=== PATIENT | male | born 1960 | race Caucasian/White ===

== ENCOUNTER 2018-11-25 21:56 | Inpatient (IN) | payer MEDICAID ==
[~2018-11-25] VITALS: Ht 177.8 cm; Wt 112.3 kg
[~2018-11-25 21:56] MED LIST: ASPI-611 PO; BENZONATATE 100 MG; BUDE10.2 INH; CARI350T PO; CHOL400T57 PO; CLOP75TA15 PO; DIGO250T77 PO; DOCU-329 PO; DOXYCYCLINE MONOHYDRATE 100 MG; FENO160T10 PO; FURO40TA4 PO; INSU100C10 SQ; INSU100V2 SQ; IPRA3AMP31 IH; LINA5TAB4 PO; LOSA50TA64 PO; METO25TA6 PO; METO50TA16 PO; NITR0.4T51 SL; NORCO10T PO; OMEP20TA5 PO; PREDNISONE 20 MG; SPIIN INH; SPIR25TA5 PO; TEMA30CA5 PO; VENL75TA4 PO; VITAMIN E PO
[2018-11-25 22:20] LABS: BASOPHILS # (AUTO) 0.1 X10'3 (0-0.2); EOSINOPHILS # (AUTO) 0.4 X10'3 (0-0.9); EOSINOPHILS % (AUTO) 4.7 % (0-6); HEMOGLOBIN 13.6 g/dl (14.0-17.9); LYMPHOCYTES # (AUTO) 1.9 X10'3 (1.1-4.8); LYMPHOCYTES % (AUTO) 22.7 % (21-51); MEAN CORPUSCULAR HEMOGLOBIN 29.9 PG (27.0-31.0); MEAN CORPUSCULAR HGB CONC 33.3 g/dL (33.0-36.5); MEAN CORPUSCULAR VOLUME 89.7 FL (78-98); MEAN PLATELET VOLUME 9.4 FL (7.4-10.4); MONOCYTES # (AUTO) 0.8 X10'3 (0-0.9); NEUTROPHILS # (AUTO) 5.2 X10'3 (1.8-7.7); NEUTROPHILS % (AUTO) 62.6 % (42-75); PLATELET COUNT 206 X10'3 (140-440); RED BLOOD COUNT 4.56 X10'6 (4.70-6.10); RED CELL DISTRIBUTION WIDTH 13.8 % (11.5-14.5); WHITE BLOOD COUNT 8.4 X10'3 (4.5-11.0)
[2018-11-25 22:33] LABS: PARTIAL THROMBOPLASTIN TIME 26 SECONDS (22-32)
[2018-11-25 22:39] LABS: ALANINE AMINOTRANSFERASE 21 U/L (12-78); ALBUMIN 3.7 G/DL (3.4-5.0); ALBUMIN/GLOBULIN RATIO 1.2 (1.1-1.5); ALKALINE PHOSPHATASE 71 IU/L (46-116); ANION GAP 8 (8-16); ASPARTATE AMINO TRANSFERASE 11 U/L (10-37); BILIRUBIN,TOTAL 0.5 MG/DL (0.1-1.0); BLOOD UREA NITROGEN 17 MG/DL (7-18); BUN/CREATININE RATIO 12.7 (5.4-32.0); CALCIUM 8.6 MG/DL (8.5-10.1); CHLORIDE 101 MMOL/L (99-107); CREATININE 1.34 MG/DL (0.60-1.10); GLUCOSE 274 MG/DL (70-104); POTASSIUM 3.7 MMOL/L (3.5-5.1); SODIUM 137 MMOL/L (135-145); TOTAL CARBON DIOXIDE 27.7 MMOL/L (24-32); TOTAL PROTEIN 6.8 G/DL (6.4-8.2); eGFR 55 ML/MIN
[2018-11-25 23:23] LABS: ETHANOL < 0.010 GM/DL (0.0-0.010)
[2018-11-25] MEDS ORDERED: carVEDilol 12.5mg tablet PO SCH (23:30)
[2018-11-25] MEDS ORDERED: enoxaparin 100mg/ml syringe SUBCUT ONE (23:35)
[2018-11-25 23:43] LABS: MAGNESIUM 1.8 MG/DL (1.5-2.4)
[2018-11-26] VITALS (14 sets, daily range): BP systolic 99–147; BP diastolic 55–97
--- NOTE | 2018-11-26 00:30 | NUR ---
Patient in room PCU 3013. I have received report from MAURA Mccartney in the ER and had the opportunity to ask questions and assume patient care.
[2018-11-26] MEDS ORDERED: normal saline 1000ml 1,000 ML IV SCH (00:40)
[2018-11-26] MEDS ORDERED: magnesium hydroxide 30ml (MOM) UD suspension PO PRN (00:40)
[2018-11-26] MEDS ORDERED: mag hydrox/Alum hydrox/simeth 30ml oral suspension PO PRN (00:40)
[2018-11-26] MEDS ORDERED: ondansetron/PF 4mg/2ml inj IV PRN (00:40)
[2018-11-26] MEDS ORDERED: acetaminophen 325mg tablet PO PRN (00:40)
[2018-11-26] MEDS ORDERED: dextrose ORAL solution 15 GM/59 ML bottle PO PRN ×2 (00:45)
[2018-11-26] MEDS ORDERED: MESSAGE TO PHARMACY PO ONE (00:45)
[2018-11-26] MEDS ORDERED: dextrose 50%-water 50ml dispensing syringe IV PRN ×2 (00:45)
[2018-11-26] MEDS ORDERED: glucagon, human recombinant 1mg kit SUBCUT PRN (00:45)
[2018-11-26] MEDS ORDERED: FERR-29 PO (00:48)
[2018-11-26] MEDS ORDERED: DILT180C53 PO (00:48)
[2018-11-26] MEDS ORDERED: HYDR-3973 PO (00:48)
[2018-11-26] MEDS ORDERED: POTA-82 PO (00:48)
[2018-11-26] MEDS ORDERED: METH750T3 PO (00:48)
[2018-11-26] MEDS ORDERED: ATOR40TA72 PO (00:48)
[2018-11-26] MEDS ORDERED: FLO0.4C PO (00:48)
[2018-11-26] MEDS ORDERED: PANT40TA4 PO (00:48)
[2018-11-26] MEDS ORDERED: INSU100I31 SQ (00:48)
[2018-11-26 01:13] LABS: HEMOGLOBIN A1C 10.2 % (4.5-6.2)
--- NOTE | 2018-11-26 01:15 | NUR ---
Patient arrived from ER while I was at lunch, he is laying in bed resting comfortably at this time. He is A&O x3, SCHNEIDER and is appropriate, I will continue to monitor.
[2018-11-26] MEDS ORDERED: magnesium 2GM in 50ml NS 50 ML IV ONE (01:30)
[2018-11-26 01:48] LABS: URINE AMPHETAMINE SCREEN NEGATIVE (Neg); URINE BARBITUATE SCREEN NEGATIVE (Neg); URINE BENZODIAZEPINES SCREEN NEGATIVE (Neg); URINE CANNABINOID SCREEN NEGATIVE (Neg); URINE COCAINE SCREEN NEGATIVE (Neg); URINE METHADONE SCREEN NEGATIVE (Neg); URINE OPIATE SCREEN NEGATIVE (Neg); URINE PHENCYCLIDINE SCREEN NEGATIVE (Neg)
[2018-11-26] MEDS ORDERED: HYDROcodone/acetaminophen 10/325mg tab PO PRN (02:10)
--- NOTE | 2018-11-26 02:32 | NUR ---
Patient's Mag is 1.8, he has orders from ER to give IV mag replacement. Per Dr. Nesbitt, discontinue this order.
[2018-11-26] MEDS: morphine 2 MG/ML inj. syringe IV PRN ×2 (02:38→16:25)
[2018-11-26] MEDS ORDERED: cyclobenzaprine 10mg tablet PO PRN (02:45)
[2018-11-26] MEDS ORDERED: ipratropium 0.5 MG/2.5ML nebule IH SCH (03:00)
[2018-11-26] MEDS ORDERED: albuterol 2.5 MG/3 ML nebule NEB SCH (03:00)
[2018-11-26] MEDS: ipratropium/albuterol 3ml nebule IH SCH ×4 (03:44→20:18)
--- NOTE | 2018-11-26 06:18 | NUR ---
Problems reprioritized. Patient report given, questions answered & plan of care reviewed with MAURA Teague.
--- NOTE | 2018-11-26 06:36 | NUR ---
Patient in room PCU 3013. I have received report from Cristina LORENZO and had the opportunity to ask questions and assume patient care.
[2018-11-26] MEDS: budesonide 0.5mg/2ml UD nebule IH SCH ×2 (07:24→20:18)
[2018-11-26] MEDS ORDERED: tamsulosin 0.4mg capsule PO SCH (08:00)
[2018-11-26] MEDS ORDERED: digoxin 250mcg (0.25mg) tablet PO SCH (08:00)
[2018-11-26] MEDS ORDERED: pantoprazole 40mg Tablet.DR PO SCH (08:00)
[2018-11-26] MEDS ORDERED: diltiazem CD 180mg cap (once-daily) PO SCH (08:00)
[2018-11-26] MEDS ORDERED: atorvastatin 20mg tablet PO SCH (08:00)
[2018-11-26] MEDS ORDERED: ferrous sulfate 325mg tablet PO SCH (08:00)
[2018-11-26] MEDS: heparin, porcine 5000 units/ml vial SQ SCH ×2 (08:00→19:58)
[2018-11-26] MEDS ORDERED: potassium Cl 20 mEq SR tablet PO SCH (08:00)
[2018-11-26] MEDS ORDERED: aspirin 81mg tab.chew PO SCH (08:30)
[2018-11-26] MEDS ORDERED: fenofibrate 145mg tablet PO SCH (08:30)
[2018-11-26] MEDS ORDERED: magnesium 4gm in 100ml NS 100 ML IV PRN (09:20)
[2018-11-26] MEDS ORDERED: potassium CL 10mEq/100ml bag 100 ML IV PRN (09:20)
[2018-11-26] MEDS ORDERED: magnesium Cl slow-release 64mg tablet PO PRN (09:20)
[2018-11-26] MEDS ORDERED: potassium Cl 20 mEq SR tablet PO PRN ×2 (09:20)
[2018-11-26] MEDS ORDERED: aminophylline 250mg/10ml inj. IV PRN (09:35)
[2018-11-26] MEDS ORDERED: metoprolol tartrate 1mg/ml inj IV PRN (09:35)
[2018-11-26] MEDS ORDERED: regadenoson 0.4mg/5ml syringe IV ONE (09:35)
[2018-11-26] MEDS ORDERED: nitroGLYCERIN 0.4mg SUBLingual tab SL PRN (09:35)
[2018-11-26] MEDS: furosemide 40mg tablet PO SCH ×2 (10:13→19:56)
[2018-11-26] MEDS: metoprolol tartrate 50mg tablet PO SCH ×2 (10:14→19:57)
[2018-11-26] MEDS: docusate sod 250mg capsule PO SCH ×2 (10:18→19:58)
--- NOTE | 2018-11-26 14:34 | NUR ---
Patient arrived back from [facility] for stress test, will page MD for diet order.
--- NOTE | 2018-11-26 14:36 | NUR ---
Paged hospitalist, "Jenny 54- room 3013 A Jemma Chairez urgent but nonemergent call back request for diet order post Princess, needs diet order. Thank you. Waiting on diet orders.
--- NOTE | 2018-11-26 15:43 | NUR ---
DM consult: Pt with A1c 10.2 seen at bedside. Pt reports seeing PCP for DM management q months, states he takes his meds per rx, and checks BG levels two times a day. Pt states BG levels are all over the place and acknowledges that BG levels are not well controlled. Pt states he doesn't follow a DM diet and very passive about learning ways to better manage DM. Pt provided with written DM education with referral to outpatient DM class. Per documented hx patient's A1c was 9.3 in January 2017 and prior to that was well controlled in the sixes and sevens. Pt does not verbalize any change that could've contributed in his A1c increasing. RD encouraged pt to attend outpatient DM class and reach out to RD if he has any questions. Pt admit with CP. Pt currently NPO and reports being very hungry, noted that RN has paged MD for diet order. Pt requests double protein TID once diet is advanced, d/w dietary. Pt denies any food allergies or difficulty chewing/swallowing. Pt reports diarrhea with liquid stools today, discussed BRAT diet and informed pt to let RN know. Noted that pt receiving routine Colace. Will continue to follow. Recommendations: 1) Advance to heart healthy CHO controlled diet as medically indicated 2) Double protein TID once diet advancement 3) Routine bowel care 4) Wt per rx Addendum: 11/26/18 at [address] Amended: Links added.
--- NOTE | 2018-11-26 17:06 | NUR ---
Paged hospitatlist, "delma 54- room 3027 A stress test results in- please page whether we can order HH diet or not. Thank you"
--- NOTE | 2018-11-26 18:26 | NUR ---
Problems reprioritized. Patient report given, questions answered & plan of care reviewed with Cristina LORENZO.
[2018-11-26] MEDS: insulin Lispro (HumaLOG) vial - multi-dose SQ SCH ×2 (20:01→21:09)
[2018-11-26] MEDS ORDERED: insulin glargine (Lantus) pen - multi-dose SQ SCH (21:00)
[2018-11-26] MEDS ORDERED: venlafaxine XR 75mg capsule (Q24H) PO SCH (21:00)
--- NOTE | 2018-11-26 22:27 | NUR ---
Patient in room U 3013. I have received report from MAURA Alvarado and had the opportunity to ask questions and assume patient care. Patient sitting up in bed eating dinner. He is A&O x3, SCHNEIDER and is appropriate.
[2018-11-27 02:00] VITALS: BP 119/64
[2018-11-27] MEDS: ipratropium/albuterol 3ml nebule IH SCH ×2 (02:56→08:04)
--- NOTE | 2018-11-27 03:20 | NUR ---
Patient is up sitting on side of bed watching TV, he seem anxious and fidgety. I asked if he was in pain and he said yes, but doesn't want any pain medication, he just can't sleep here and wants to go home. He said he won't wait all day to go home either and will leave. I told him do what you have to do.
[2018-11-27 05:18] LABS: BASOPHILS # (AUTO) 0.1 X10'3 (0-0.2); BASOPHILS % (AUTO) 1.4 % (0-1); EOSINOPHILS # (AUTO) 0.4 X10'3 (0-0.9); EOSINOPHILS % (AUTO) 5.5 % (0-6); HEMATOCRIT 39.7 % (42.0-52.0); HEMOGLOBIN 13.3 g/dl (14.0-17.9); LYMPHOCYTES # (AUTO) 2.6 X10'3 (1.1-4.8); LYMPHOCYTES % (AUTO) 34.8 % (21-51); MEAN CORPUSCULAR HEMOGLOBIN 29.6 PG (27.0-31.0); MEAN CORPUSCULAR HGB CONC 33.6 g/dL (33.0-36.5); MEAN CORPUSCULAR VOLUME 88.1 FL (78-98); MEAN PLATELET VOLUME 10.1 FL (7.4-10.4); MONOCYTES # (AUTO) 0.8 X10'3 (0-0.9); NEUTROPHILS # (AUTO) 3.7 X10'3 (1.8-7.7); NEUTROPHILS % (AUTO) 48.3 % (42-75); PLATELET COUNT 191 X10'3 (140-440); RED CELL DISTRIBUTION WIDTH 13.6 % (11.5-14.5); WHITE BLOOD COUNT 7.6 X10'3 (4.5-11.0)
[2018-11-27 05:38] LABS: ALANINE AMINOTRANSFERASE 23 U/L (12-78); ALBUMIN 3.1 G/DL (3.4-5.0); ALKALINE PHOSPHATASE 65 IU/L (46-116); ANION GAP 10 (8-16); ASPARTATE AMINO TRANSFERASE 8 U/L (10-37); BILIRUBIN,TOTAL 0.3 MG/DL (0.1-1.0); BLOOD UREA NITROGEN 22 MG/DL (7-18); BUN/CREATININE RATIO 16.8 (5.4-32.0); CALCIUM 8.2 MG/DL (8.5-10.1); CHLORIDE 107 MMOL/L (99-107); CHOLESTEROL 155 MG/DL (0-200); CREATININE 1.31 MG/DL (0.60-1.10); GLUCOSE 171 MG/DL (70-104); HDL CHOLESTEROL 22 MG/DL (35-60); LDL CHOLESTEROL 94 MG/DL (50-100); MAGNESIUM 1.9 MG/DL (1.5-2.4); PHOSPHORUS 3.6 MG/DL (2.3-4.5); POTASSIUM 3.8 MMOL/L (3.5-5.1); SODIUM 141 MMOL/L (135-145); TOTAL CARBON DIOXIDE 24.4 MMOL/L (24-32); TOTAL PROTEIN 6.1 G/DL (6.4-8.2); TRIGLYCERIDES 306 MG/DL (20-135); eGFR 56 ML/MIN
[2018-11-27 06:00] VITALS: BP 156/92
--- NOTE | 2018-11-27 06:26 | NUR ---
Problems reprioritized. Patient report given, questions answered & plan of care reviewed with MAURA Alston.
--- NOTE | 2018-11-27 06:35 | NUR ---
Patient in room PCU 3013. I have received report from MAURA Painting and had the opportunity to ask questions and assume patient care.
--- NOTE | 2018-11-27 07:00 | NUR ---
Informed by MORTGAGE LOAN PROCESSING CLERK that patient is taking out his IV and going home. Patient is angry, belligerant, and using derogatory language toward the staff. He states that we are 'all rude and stupid". Told patient I would take his IV out or even help him with it and he refused, using the sheet to apply pressure to the bleeding. Asked him if he would sign an AMA form and he agreed, however when I went back to the room he was already gone. I met him in the barry and he refused to sign. notified.
--- NOTE | 2018-11-27 07:15 | NUR ---
Message to Dr. Obando - Mr. Easton RM [id number] Left AMA, refused to sign AMA form. Thanks, Alecia [facility] ext [phone]
[2018-11-27] MEDS: budesonide 0.5mg/2ml UD nebule IH SCH (08:00)
== END 2018-11-27 07:20 | disposition left against medical advice (07) | DRG 198 ==
LOC: ER 21:57 → PCU 3S 11-26 01:31 → CMPBEDREQ 11-26 01:53
PROVIDERS: ADMIT Internal Medicine; ATTEND Family Medicine
PROC: 4A02XM4 Measurement of Cardiac Total Activity, External Approach (ICD-10-PCS; principal; 2018-11-26)
PROC: 3E033HZ Introduction of Radioactive Substance into Peripheral Vein, Percutaneous Approach (ICD-10-PCS; 2018-11-26)
DX: I25.110 Atherosclerotic heart disease of native coronary artery with unstable angina pectoris (principal); E11.42 Type 2 diabetes mellitus with diabetic polyneuropathy; I11.0 Hypertensive heart disease with heart failure; I50.9 Heart failure, unspecified; E78.00 Pure hypercholesterolemia, unspecified; G47.30 Sleep apnea, unspecified; E78.5 Hyperlipidemia, unspecified; I48.91 Unspecified atrial fibrillation; F32.9 Major depressive disorder, single episode, unspecified; F41.9 Anxiety disorder, unspecified; G89.29 Other chronic pain; Z53.21 Procedure and treatment not carried out due to patient leaving prior to being seen by health care provider; N28.9 Disorder of kidney and ureter, unspecified; M54.9 Dorsalgia, unspecified; B19.20 Unspecified viral hepatitis C without hepatic coma; J43.9 Emphysema, unspecified; Z82.3 Family history of stroke; Z82.49 Family history of ischemic heart disease and other diseases of the circulatory system; Z90.49 Acquired absence of other specified parts of digestive tract; Z80.9 Family history of malignant neoplasm, unspecified; Z79.899 Other long term (current) drug therapy; Z79.82 Long term (current) use of aspirin
CPT/HCPCS: 36415; 71045; 78452; 80053; 80061; 80162; 80305; 80320; 82948; 83036; 83735; 83880; 84100; 84443; 84484; 85025; 85610; 85730; 87081; 93005; 93017; 94640; 94760; 96372; 99285; A9500; G0378; J1644; J1650; J1815; J2270; J2785; J7626

== ENCOUNTER 2019-05-24 23:57 | Inpatient (IN) | payer MEDICAID ==
[~2019-05-24] VITALS: Ht 177.8 cm; Wt 117.4 kg
[~2019-05-24 23:57] MED LIST changes: +ATOR40TA72 PO; -BENZONATATE 100 MG; -CARI350T PO; -CHOL400T57 PO; -CLOP75TA15 PO; +DIGO-21 PO; -DIGO250T77 PO; +DILT180C53 PO; -DOXYCYCLINE MONOHYDRATE 100 MG; +FERR-29 PO; +FLO0.4C PO; +HYDR-3973 PO; -IPRA3AMP31 IH; -LINA5TAB4 PO; -LOSA50TA64 PO; +METH750T3 PO; -METO25TA6 PO; -NITR0.4T51 SL; -NORCO10T PO; -OMEP20TA5 PO; +PANT40TA4 PO; +POTA-82 PO; -PREDNISONE 20 MG; -SPIR25TA5 PO; -TEMA30CA5 PO; -VITAMIN E PO
[2019-05-25 00:37] LABS: BASOPHILS # (AUTO) 0.2 X10'3 (0-0.2); BASOPHILS % (AUTO) 1.1 % (0-1); EOSINOPHILS # (AUTO) 0.6 X10'3 (0-0.9); EOSINOPHILS % (AUTO) 4.3 % (0-6); HEMATOCRIT 37.2 % (42.0-52.0); HEMOGLOBIN 12.4 g/dl (14.0-17.9); LYMPHOCYTES # (AUTO) 1.2 X10'3 (1.1-4.8); LYMPHOCYTES % (AUTO) 8.7 % (21-51); MEAN CORPUSCULAR HEMOGLOBIN 30.1 PG (27.0-31.0); MEAN CORPUSCULAR HGB CONC 33.4 g/dL (33.0-36.5); MEAN CORPUSCULAR VOLUME 90.3 FL (78-98); MEAN PLATELET VOLUME 9.6 FL (7.4-10.4); NEUTROPHILS # (AUTO) 10.9 X10'3 (1.8-7.7); NEUTROPHILS % (AUTO) 78.9 % (42-75); PLATELET COUNT 249 X10'3 (140-440); RED BLOOD COUNT 4.12 X10'6 (4.70-6.10); RED CELL DISTRIBUTION WIDTH 14.5 % (11.5-14.5); WHITE BLOOD COUNT 13.8 X10'3 (4.5-11.0)
[2019-05-25 00:48] LABS: PARTIAL THROMBOPLASTIN TIME 30 SECONDS (22-32)
[2019-05-25] MEDS ORDERED: normal saline 1000ML IV soln IVB ONE ×2 (01:15→02:45)
[2019-05-25] MEDS ORDERED: ipratropium/albuterol 3ml nebule NEB ONE (01:15)
[2019-05-25] MEDS ORDERED: ALPR-624 PO (01:19)
[2019-05-25] MEDS ORDERED: BUSP5TAB3 PO (01:19)
[2019-05-25] MEDS ORDERED: APIX5TAB3 PO (01:19)
[2019-05-25] MEDS ORDERED: LURA60TA2 PO (01:19)
[2019-05-25 01:39] LABS: ALANINE AMINOTRANSFERASE 16 U/L (12-78); ALBUMIN 2.7 G/DL (3.4-5.0); ALBUMIN/GLOBULIN RATIO 0.7 (1.1-1.5); ALKALINE PHOSPHATASE 65 IU/L (46-116); ANION GAP 6 (8-16); ASPARTATE AMINO TRANSFERASE 12 U/L (10-37); BILIRUBIN,TOTAL 0.6 MG/DL (0.1-1.0); BLOOD UREA NITROGEN 21 MG/DL (7-18); BUN/CREATININE RATIO 13.9 (5.4-32.0); CALCIUM 7.9 MG/DL (8.5-10.1); CHLORIDE 104 MMOL/L (99-107); CREATININE 1.51 MG/DL (0.60-1.10); GLUCOSE 213 MG/DL (70-104); POTASSIUM 4.1 MMOL/L (3.5-5.1); SODIUM 140 MMOL/L (135-145); TOTAL CARBON DIOXIDE 30.5 MMOL/L (24-32); TOTAL PROTEIN 6.4 G/DL (6.4-8.2); eGFR 48 ML/MIN
[2019-05-25] MEDS ORDERED: iohexol 350MG/ML 100ml bottle IV ONE (01:44)
[2019-05-25] MEDS ORDERED: methylPREDNISolone sod succ 125mg/2ml vial IV ONE (02:45)
[2019-05-25] MEDS ORDERED: CefTRIAXone/D5W-Rocephin 1gm 50 ML IV ONE (02:45)
[2019-05-25] MEDS ORDERED: albuterol 2.5 MG/3 ML nebule NEB ONE (02:45)
[2019-05-25] MEDS ORDERED: azithromycin/NS 500mg/250ml 250 ML IV ONE (02:45)
[2019-05-25] MEDS ORDERED: HYDROcodone/acetaminophen 5mg/325mg tablet PO PRN (03:35)
[2019-05-25] MEDS ORDERED: ondansetron/PF 4mg/2ml inj IV PRN (03:35)
[2019-05-25] MEDS ORDERED: mag hydrox/Alum hydrox/simeth 30ml oral suspension PO PRN (03:35)
[2019-05-25] MEDS ORDERED: acetaminophen 325mg tablet PO PRN (03:35)
[2019-05-25] MEDS ORDERED: magnesium hydroxide 30ml (MOM) UD suspension PO PRN (03:35)
[2019-05-25] MEDS ORDERED: dextrose 50%-water 50ml dispensing syringe IV PRN ×2 (03:40)
[2019-05-25] MEDS ORDERED: dextrose ORAL solution 15 GM/59 ML bottle PO PRN ×2 (03:40)
[2019-05-25] MEDS ORDERED: MESSAGE TO PHARMACY PO ONE (03:40)
[2019-05-25] MEDS ORDERED: glucagon, human recombinant 1mg kit SUBCUT PRN (03:40)
[2019-05-25 04:07] LABS: HEMOGLOBIN A1C 9.4 % (4.5-6.2)
[2019-05-25 04:10] VITALS: BP 164/87
[2019-05-25] MEDS: HYDROcodone/acetaminophen 10/325mg tab PO PRN ×3 (04:23→20:12)
--- NOTE | 2019-05-25 06:23 | NUR ---
Problems reprioritized. Patient report given, questions answered & plan of care reviewed with Courtney LORENZO.
[2019-05-25 06:30] VITALS: BP 135/68
--- NOTE | 2019-05-25 06:31 | NUR ---
Patient in room PCU 3023B. I have received report from Hussain LORENZO and had the opportunity to ask questions and assume patient care.
[2019-05-25] MEDS: CefTRIAXone/D5W-Rocephin 1gm 50 ML IV SCH (07:41)
[2019-05-25] MEDS: digoxin 250mcg (0.25mg) tablet PO SCH (07:42)
[2019-05-25] MEDS: ferrous sulfate 325mg tablet PO SCH (07:43)
[2019-05-25] MEDS: apixaban 5mg tablet PO SCH (07:43)
[2019-05-25] MEDS: busPIRone 5mg tablet PO SCH ×2 (07:43→19:21)
[2019-05-25] MEDS: tamsulosin 0.4mg capsule PO SCH (07:43)
[2019-05-25] MEDS: azithromycin 250mg tablet PO SCH (07:44)
[2019-05-25] MEDS: diltiazem CD 180mg cap (once-daily) PO SCH (07:44)
[2019-05-25] MEDS: potassium chloride 10mEq ER tablet PO SCH (07:44)
[2019-05-25] MEDS: atorvastatin 20mg tablet PO SCH (07:45)
[2019-05-25] MEDS: docusate sod 250mg capsule PO SCH ×2 (07:45→19:21)
[2019-05-25] MEDS: metoprolol tartrate 50mg tablet PO SCH ×2 (07:45→19:22)
[2019-05-25] MEDS: furosemide 40mg tablet PO SCH ×2 (07:45→19:22)
[2019-05-25] MEDS: pantoprazole 40mg Tablet.DR PO SCH (07:45)
[2019-05-25] MEDS: ALPRAZolam 0.5mg tablet PO SCH ×2 (07:46→19:21)
[2019-05-25] MEDS: aspirin 81mg tablet.DR PO SCH (07:48)
[2019-05-25] MEDS: METHOCARBAMOL PO SCH ×3 (07:58→20:27)
[2019-05-25] MEDS: FENOFIBRATE 160MG PO SCH (07:58)
[2019-05-25] MEDS: ipratropium 0.5 MG/2.5ML nebule NEB SCH ×2 (08:13→12:16)
[2019-05-25] MEDS: insulin Lispro (HumaLOG) vial - multi-dose SQ SCH ×4 (09:03→20:23)
[2019-05-25] MEDS ORDERED: pneumococcal 23-VAL P-sac vacc 25 mcg/0.5ml vial IMVAC ONE (10:00)
[2019-05-25 11:00] VITALS: BP 137/64
--- NOTE | 2019-05-25 12:07 | NUR ---
Paged RT RE José Miguel Chairez [id number]. Pt requesting breathing treatment, becoming more SOB. thank you!
--- NOTE | 2019-05-25 12:18 | NUR ---
RT PAGED FOR PRN TX, PT INCREASING SOB. PT'S 1400 TX GIVEN EARLY BEING THAT PT DOES NOT HAVE ANY PRN ORDERS. PT COULD BENEFIT FROM HAVING PRN SVN TX ORDERS. Addendum: 05/25/19 at 1226 by Vannessa Burch RT Amended: Links added.
--- NOTE | 2019-05-25 14:21 | NUR ---
DM consult: Pt admitted with A1c of 9.4, down from 10.[address] international sourcing manager visited pt at bedside to provide written and verbal DM education. Pt reports working on bringing A1c down and his PCP in [facility] has recently changed his insulin and medication but unable to recall what they are called. Pt reports currently checking BG in the morning and night time. Pt reports a good appetite, requesting double protein TIDWM, d/w dietary. Pt denies any food allergies, difficulties chewing/swallowing, constipation/diarrhea. LBM 05/24. Will continue to monitor. Addendum: 05/25/19 at 1422 by Wing Cathy LI Amended: Links added. Addendum: 05/25/19 at [address] JEN Approves
[2019-05-25 15:00] VITALS: BP 147/73
[2019-05-25] MEDS ORDERED: ipratropium/albuterol 3ml nebule NEB PRN (15:45)
[2019-05-25] MEDS ORDERED: INSU100I31 SUBCUT (16:14)
[2019-05-25] MEDS ORDERED: INSU100I39 SUBCUT (16:15)
--- NOTE | 2019-05-25 16:16 | NUR ---
Ambulated with patient: patient walked 300 feet with front wheel walker, with portable oxygen. Stopped occasionally to rest and catch breath, no other complaints from pt
[2019-05-25 18:00] VITALS: BP 161/78
--- NOTE | 2019-05-25 18:08 | NUR ---
Patient in room PCU 3023. I have received report from Courtney LORENZO and had the opportunity to ask questions and assume patient care.
--- NOTE | 2019-05-25 18:14 | NUR ---
Problems reprioritized. Patient report given, questions answered & plan of care reviewed with Hussain LORENZO.
[2019-05-25] MEDS: ipratropium/albuterol 3ml nebule NEB SCH (19:51)
[2019-05-25] MEDS ORDERED: venlafaxine 37.5mg tablet PO SCH (21:00)
[2019-05-25] MEDS ORDERED: lurasidone 60mg tablet PO SCH (21:00)
[2019-05-25] MEDS ORDERED: insulin glargine (Lantus) pen - multi-dose SQ SCH (21:00)
[2019-05-25 22:00] VITALS: BP 163/84
[2019-05-26 02:00] VITALS: BP 156/51
[2019-05-26] MEDS: HYDROcodone/acetaminophen 10/325mg tab PO PRN ×2 (04:21→07:54)
--- NOTE | 2019-05-26 06:19 | NUR ---
Patient in room PCU 3023B. I have received report from Hussain LORENZO and had the opportunity to ask questions and assume patient care.
--- NOTE | 2019-05-26 06:19 | NUR ---
Problems reprioritized. Patient report given, questions answered & plan of care reviewed with Courtney LORENZO.
[2019-05-26 06:30] VITALS: BP 116/68
[2019-05-26 06:35] LABS: BASOPHILS # (AUTO) 0.1 X10'3 (0-0.2); BASOPHILS % (AUTO) 0.6 % (0-1); EOSINOPHILS # (AUTO) 0.3 X10'3 (0-0.9); EOSINOPHILS % (AUTO) 2.7 % (0-6); HEMATOCRIT 31.4 % (42.0-52.0); HEMOGLOBIN 10.8 g/dl (14.0-17.9); LYMPHOCYTES # (AUTO) 2.1 X10'3 (1.1-4.8); LYMPHOCYTES % (AUTO) 19.4 % (21-51); MEAN CORPUSCULAR HEMOGLOBIN 30.8 PG (27.0-31.0); MEAN CORPUSCULAR HGB CONC 34.3 g/dL (33.0-36.5); MEAN CORPUSCULAR VOLUME 89.9 FL (78-98); MEAN PLATELET VOLUME 9.4 FL (7.4-10.4); MONOCYTES # (AUTO) 0.9 X10'3 (0-0.9); MONOCYTES % (AUTO) 8.3 % (2-12); NEUTROPHILS # (AUTO) 7.5 X10'3 (1.8-7.7); PLATELET COUNT 222 X10'3 (140-440); RED BLOOD COUNT 3.49 X10'6 (4.70-6.10); RED CELL DISTRIBUTION WIDTH 14.4 % (11.5-14.5); WHITE BLOOD COUNT 10.9 X10'3 (4.5-11.0)
[2019-05-26 06:57] LABS: ALANINE AMINOTRANSFERASE 15 U/L (12-78); ALBUMIN 2.7 G/DL (3.4-5.0); ALBUMIN/GLOBULIN RATIO 0.8 (1.1-1.5); ALKALINE PHOSPHATASE 72 IU/L (46-116); ANION GAP 7 (8-16); ASPARTATE AMINO TRANSFERASE 11 U/L (10-37); BILIRUBIN,TOTAL 0.4 MG/DL (0.1-1.0); BLOOD UREA NITROGEN 30 MG/DL (7-18); BUN/CREATININE RATIO 16.9 (5.4-32.0); CALCIUM 8.4 MG/DL (8.5-10.1); CHLORIDE 105 MMOL/L (99-107); CREATININE 1.78 MG/DL (0.60-1.10); GLUCOSE 204 MG/DL (70-104); POTASSIUM 3.7 MMOL/L (3.5-5.1); SODIUM 141 MMOL/L (135-145); TOTAL CARBON DIOXIDE 29.3 MMOL/L (24-32); TOTAL PROTEIN 6.3 G/DL (6.4-8.2); eGFR 39 ML/MIN
[2019-05-26] MEDS: ipratropium/albuterol 3ml nebule NEB SCH ×3 (07:28→16:04)
[2019-05-26] MEDS: CefTRIAXone/D5W-Rocephin 1gm 50 ML IV SCH (07:53)
[2019-05-26] MEDS: tamsulosin 0.4mg capsule PO SCH (07:54)
[2019-05-26] MEDS: ferrous sulfate 325mg tablet PO SCH (07:55)
[2019-05-26] MEDS: metoprolol tartrate 50mg tablet PO SCH (07:55)
[2019-05-26] MEDS: diltiazem CD 180mg cap (once-daily) PO SCH (07:55)
[2019-05-26] MEDS: digoxin 250mcg (0.25mg) tablet PO SCH (07:55)
[2019-05-26] MEDS: busPIRone 5mg tablet PO SCH (07:55)
[2019-05-26] MEDS: furosemide 40mg tablet PO SCH (07:56)
[2019-05-26] MEDS: potassium chloride 10mEq ER tablet PO SCH (07:56)
[2019-05-26] MEDS: atorvastatin 20mg tablet PO SCH (07:56)
[2019-05-26] MEDS: ALPRAZolam 0.5mg tablet PO SCH (07:56)
[2019-05-26] MEDS: docusate sod 250mg capsule PO SCH (07:56)
[2019-05-26] MEDS: apixaban 5mg tablet PO SCH (07:56)
[2019-05-26] MEDS: azithromycin 250mg tablet PO SCH (07:56)
[2019-05-26] MEDS: pantoprazole 40mg Tablet.DR PO SCH (07:56)
[2019-05-26] MEDS: METHOCARBAMOL PO SCH ×2 (08:00→12:15)
[2019-05-26] MEDS: FENOFIBRATE 160MG PO SCH (08:00)
[2019-05-26] MEDS ORDERED: budesonide 0.5mg/2ml UD nebule IH SCH (08:00)
[2019-05-26] MEDS: aspirin 81mg tablet.DR PO SCH (08:02)
[2019-05-26] MEDS: insulin Lispro (HumaLOG) vial - multi-dose SQ SCH ×2 (08:47→13:54)
[2019-05-26 11:00] VITALS: BP 129/79
[2019-05-26 15:00] VITALS: BP 154/71
--- NOTE | 2019-05-26 15:34 | NUR ---
Paged PAGER ID: [phone] MESSAGE: Courtney hyde [phone]. José Miguel Kim [id number]. Pt is requesting to discharge tonight if possible, family is at bedside as well.
[2019-05-26] MEDS ORDERED: AZIT-63 PO (17:15)
[2019-05-26] MEDS ORDERED: CEFD300C3 PO (17:15)
--- NOTE | 2019-05-26 17:55 | NUR ---
Per MD, patient stable for discharge home. Discharge packet printed and provided to patient, including education on Diabetes Survival Skills, Smoking Cessation, and Pneumonia. Pt educated to followup with PCP and get repeat CT lung and provided with hardcopy order for that. New prescriptions called into [facility] in [place], per pt request. IV removed with catheter intact, and tele monitor removed. All belongings sent with patient. Patient escorted from hospital via wheelchair, accompanied by hospital staff and family, and driven home via private vehicle.
[2019-05-26] MEDS ORDERED: lactobacillus rhamnosus 10,000 MMU CELLS/CAPSULE PO SCH (20:00)
== END 2019-05-26 17:53 | disposition home or self-care (01) | DRG 139 ==
LOC: ER 23:58 → ED HOLD 05-25 03:35 → PCU 3S 05-25 04:10
PROVIDERS: ADMIT Internal Medicine; ATTEND Hospitalist
PROC: B32T1ZZ Computerized Tomography (CT Scan) of Left Pulmonary Artery using Low Osmolar Contrast (ICD-10-PCS; principal; 2019-05-25)
PROC: B3201ZZ Computerized Tomography (CT Scan) of Thoracic Aorta using Low Osmolar Contrast (ICD-10-PCS; 2019-05-25)
PROC: B32S1ZZ Computerized Tomography (CT Scan) of Right Pulmonary Artery using Low Osmolar Contrast (ICD-10-PCS; 2019-05-25)
DX: J18.9 Pneumonia, unspecified organism (principal); E11.22 Type 2 diabetes mellitus with diabetic chronic kidney disease; E11.42 Type 2 diabetes mellitus with diabetic polyneuropathy; I13.0 Hypertensive heart and chronic kidney disease with heart failure and stage 1 through stage 4 chronic kidney disease, or unspecified chronic kidney disease; I50.32 Chronic diastolic (congestive) heart failure; I48.91 Unspecified atrial fibrillation; E78.00 Pure hypercholesterolemia, unspecified; F17.200 Nicotine dependence, unspecified, uncomplicated; I25.10 Atherosclerotic heart disease of native coronary artery without angina pectoris; J43.9 Emphysema, unspecified; N18.3 Chronic kidney disease, stage 3 (moderate); R09.02 Hypoxemia; B19.20 Unspecified viral hepatitis C without hepatic coma; F32.9 Major depressive disorder, single episode, unspecified; F41.9 Anxiety disorder, unspecified; G47.30 Sleep apnea, unspecified; G89.29 Other chronic pain; M54.9 Dorsalgia, unspecified; R04.2 Hemoptysis; R59.0 Localized enlarged lymph nodes; Z79.01 Long term (current) use of anticoagulants; Z90.49 Acquired absence of other specified parts of digestive tract
CPT/HCPCS: 36415; 71045; 71275; 80053; 80162; 82948; 83036; 83605; 83880; 84145; 84484; 85025; 85610; 85730; 87040; 87081; 87502; 87503; 93005; 94640; 94760; 96365; 96375; 99285; G0378; J0456; J0696; J1815; J2930; J7030; J7626; Q9967

== ENCOUNTER 2020-12-24 13:29 | Outpatient (CLI) | payer MEDICAID ==
[~2020-12-24 13:29] MED LIST changes: +ALPR-624 PO; +APIX5TAB3 PO; -BUDE10.2 INH; +BUSP5TAB3 PO; -DOCU-329 PO; +DOCU250C96 PO; -INSU100C10 SQ; +INSU100I31 SUBCUT; +INSU100I39 SUBCUT; -INSU100V2 SQ; +LURA60TA PO; +METH-798 PO; -METH750T3 PO; -PANT40TA4 PO; +PANT40TA54 PO
== END 2020-12-24 23:59 | disposition home or self-care (01) ==
LOC: CARD DIAG 13:29
PROVIDERS: ATTEND Internal Medicine Cardiovascular Disease
DX: I34.0 Nonrheumatic mitral (valve) insufficiency (principal); R06.02 Shortness of breath
CPT/HCPCS: 93306